=== PATIENT | male | born 1970 | race Caucasian/White ===

== ENCOUNTER 2020-03-31 05:51 | Inpatient (IN) | payer MEDICAID ==
[~2020-03-31] VITALS: Ht 180.3 cm; Wt 123.9 kg
[2020-03-31 08:37] VITALS: BP 125/80
[2020-03-31] MEDS ORDERED: ZOLPIDEM TARTRATE 10 MG TABLET PO PRN (08:45)
[2020-03-31] MEDS ORDERED: LORazepam 2 MG TABLET PO PRN (08:45)
[2020-03-31] MEDS ORDERED: ARIP10TA8 PO (08:49)
[2020-03-31] MEDS ORDERED: BUSP10TA23 PO (08:49)
[2020-03-31] MEDS ORDERED: LURA60TA PO (08:49)
[2020-03-31] MEDS ORDERED: TOPI25 PO (08:49)
[2020-03-31 09:42] VITALS: BP 125/70
[2020-03-31] MEDS: BusPIRone HCL 10 MG TABLET PO SCH ×2 (12:53→16:11)
[2020-03-31 16:00] VITALS: BP 128/75
[2020-03-31] MEDS: LURASIDONE HCL 60 MG TABLET PO SCH (16:10)
[2020-03-31] MEDS: TOPIRAMATE 25 MG TABLET PO SCH (16:10)
[2020-03-31] MEDS ORDERED: LORazepam 2 MG/ML VIAL ONE (16:28)
[2020-03-31] MEDS ORDERED: HALOPERIDOL LACTATE 5 MG/ML VIAL ONE (16:28)
[2020-03-31] MEDS ORDERED: DiphenhydrAMINE HCL 50 MG/ML VIAL ONE (16:29)
[2020-03-31] MEDS ORDERED: LORazepam 2 MG/ML VIAL IM ONE (16:30)
[2020-03-31] MEDS ORDERED: HALOPERIDOL LACTATE 5 MG/ML VIAL IM ONE (16:30)
[2020-03-31] MEDS ORDERED: DiphenhydrAMINE HCL 50 MG/ML VIAL IM ONE (16:30)
[2020-04-01 05:14] VITALS: BP 122/68
[2020-04-01] MEDS: ARIPiprazole 10 MG TABLET PO SCH (07:50)
[2020-04-01] MEDS: TOPIRAMATE 25 MG TABLET PO SCH ×2 (07:50→16:12)
[2020-04-01] MEDS: BusPIRone HCL 10 MG TABLET PO SCH ×3 (07:50→16:12)
[2020-04-01] MEDS: LURASIDONE HCL 60 MG TABLET PO SCH (16:12)
[2020-04-01 16:41] VITALS: BP 115/75
[2020-04-02 05:31] VITALS: BP 124/86
[2020-04-02 08:02] VITALS: BP 123/73
[2020-04-02] MEDS: BusPIRone HCL 10 MG TABLET PO SCH (08:49)
[2020-04-02] MEDS: ARIPiprazole 10 MG TABLET PO SCH (08:50)
[2020-04-02] MEDS: TOPIRAMATE 25 MG TABLET PO SCH (08:54)
[2020-04-02] MEDS ORDERED: LURASIDONE HCL 60 MG TABLET PO SCH (17:00)
== END 2020-04-02 11:00 | disposition home or self-care (01) | DRG 885 ==
LOC: B3A 09:23
PROVIDERS: ADMIT Psychiatry & Neurology Psychiatry; ATTEND Psychiatry & Neurology Psychiatry
DX: F25.9 Schizoaffective disorder, unspecified (principal); R45.851 Suicidal ideations; G40.909 Epilepsy, unspecified, not intractable, without status epilepticus; Z91.5 Personal history of self-harm; Z79.899 Other long term (current) drug therapy
CPT/HCPCS: 87081; J1200; J1630; J2060